=== PATIENT | female | born 1965 | race Caucasian/White ===

== ENCOUNTER 2016-11-30 17:14 | Emergency (ER) | payer BC ==
[2016-11-30] MEDS ORDERED: KETOROLAC TROMETHAMINE 30 MG/ML VIAL ONE (17:27)
[2016-11-30] MEDS ORDERED: DIPHENHYDRAMINE 50 MG/ML VIAL ONE (17:28)
[2016-11-30] MEDS ORDERED: NORMAL SALINE 250 ML IV ONE (17:30)
--- NOTE | 2016-11-30 18:18 | ER PHYSICIAN DOCUMENTATION ---
Physician Documentation [facility] Name:Katy Turner Age:50 yrs Sex:Female :1965 Arrival Date:11/30/2016 Time:17:14 Bed4 Private MD:Palmira Germain EDmeganCollins Disposition: 11/30/16 18:07 Discharged to Home/Self Care. Impression: Acute Headache. - Condition is Good. - Discharge Instructions: HEADACHE, Unspecified. - Prescriptions for Imitrex 25 mg Oral Tablet - take 1 tablet by ORAL route one time - x 1 dose with fluids as early as possible after the onset of a migraine attack; if headache returns, the dose may be repeated after 2 hours, not to exceed a total daily dose of 8 tablets;. - Medical Reconciliation form form. - Follow up: Palmira Germain MD; When: As needed; Reason: If symptoms return. - Problem is new. - Symptoms are resolved. HPI: 11/30 17:57 This 50 yrs old Female presents to ER via Private Vehicle with complaints of sc Headache. 17:57 The patient complains of pain to the top of head, forehead and left sabianism. The patient sc describes the headache as aching, throbbing. Onset: The symptoms/episode began/occurred 3 day(s) ago. Associated signs and symptoms: Pertinent positives: nausea. Severity of symptoms: At its worst the pain was moderate, earlier today. Headache History: The patient has had previous headaches and this one is more severe than previous episodes. Risk factors for subarachnoid hemhorrage: no risk factors present. The patient has experienced similar episodes in the past, a few times. The patient has been recently seen by a physician: the patient's primary care provider, earlier today. headaches 2-3x month since last summer associated with stress and insomnia. Historical: - Allergies: No known Allergies; - Home Meds: 1. Ibuprofen Oral 2. acetaminophen 650 mg oral tab 3. Mucinex oral 4. Ambien Oral - PMHx: left radial head fx, unrepaired; - PSHx: Cholecysectomy; thumb joint replaced; - Tetanus: < 10 years. - Ebola Screening: : Patient negative for fever greater than or equal to 101.5 degrees Fahrenheit, and additional compatible Ebola Virus Disease symptoms. Patient denies exposure to infectious person. Patient denies travel to an Ebola-affected area in the 21 days before illness onset. No symptoms or risks identified at this time. . - Immunization history: Pneumococcal vaccine is up to date, Flu Vaccine < 1 year. - Social history: Smoking status: Patient states was never smoker of tobacco. Patient uses alcohol Patient/guardian denies using marijuana. ROS: 17:58 Constitutional: Negative for fever, chills, and weight loss. sc Eyes: Negative for injury, pain, redness, and discharge. ENT: Negative for injury, pain, and discharge. Neck: Negative for injury, pain, and swelling. Cardiovascular: Negative for chest pain, palpitations, and edema. Respiratory: Negative for shortness of breath, cough, wheezing, and pleuritic chest pain. Abdomen/GI: Negative for abdominal pain, nausea, vomiting, diarrhea, and constipation. Back: Negative for injury and pain. MS/Extremity: Negative for injury and deformity. 17:58 Skin: Negative for injury, rash, and discoloration. sc 17:58 Neuro: Positive for headache. Exam: Constitutional: This is a well developed, well nourished patient who is awake, alert, and in no acute distress. Head/Face: Normocephalic, atraumatic. Eyes: Pupils equal round and reactive to light, extra-ocular motions intact. Lids and lashes normal. Conjunctiva and sclera are non-icteric and not injected. Cornea within normal limits. Periorbital areas with no swelling, redness, or edema. ENT: Nares patent. No nasal discharge, no septal abnormalities noted. Tympanic membranes are normal and external auditory canals are clear. Oropharynx with no redness, swelling, or masses, exudates, or evidence of obstruction, uvula midline. Mucous membranes moist. Neck: Trachea midline, no thyromegaly or masses palpated, and no cervical lymphadenopathy. Supple, full range of motion without nuchal rigidity, or vertebral point tenderness. No meningismus. Cardiovascular: Regular rate and rhythm with a normal S1 and S2. No gallops, murmurs, or rubs. Normal PMI, no JVD. No pulse deficits. Respiratory: Lungs have equal breath sounds bilaterally, clear to auscultation and percussion. No rales, rhonchi or wheezes noted. No increased work of breathing, no retractions or nasal flaring. Back: No spinal tenderness. No costovertebral tenderness. Full range of motion. Skin: Warm, dry with normal turgor. Normal color with no rashes, no lesions, and no evidence of cellulitis. MS/ Extremity: Pulses equal, no cyanosis. Neurovascular intact. Full, normal range of motion, negative Homans's, calves equal bilaterally. 17:58 Neuro: Awake and alert, GCS 15, oriented to person, place, time, and situation. fl Cranial nerves II-XII grossly intact. Motor strength 5/5 in all extremities. Sensory grossly intact. Cerebellar exam normal. Normal gait. 18:09 Neuro: Orientation: is normal, Gait: is steady. fl Vital Signs: 17:20 BP 168 / 92; Pulse 60; Resp 14; Temp 97.6(O); Pulse Ox 95% on R/A; Weight 90.26 kg; sj Height 5 ft. 4 in. (162.56 cm); Pain 8/10; 17:30 BP 156 / 90; Pulse 74; Pulse Ox 95% on R/A; sj 17:45 BP 155 / 90; Pulse 74; Pulse Ox 95% ; Pain 6/10; sj 18:09 BP 159 / 92; Pulse 73; Pulse Ox 94% ; Pain 0/10; sj 17:20 Body Mass Index 34.16 (90.26 kg, 162.56 cm) Vest Coma Score: 17:59 Eye Response: spontaneous(4). Verbal Response: oriented(5). Motor Response: obeys fl commands(6). Total: 15. MDM: 17:22 Patient medically screened. sc 17:59 Differential diagnosis: migraine, tension headache. Neurological re-evaluation: normal fl neurological exam including cranial nerves, orientation, mentation, motor and sensory exam, cerebellar testing, GCS normal, and normal gait. Data reviewed: vital signs, nurses notes, old medical records, and as a result, I will continue to observe the patient, administer IV fluids. Dispensed Medications: 17:25 Drug: Toradol 30 mg; Route: IVP; Site: left forearm; sj 17:45 Follow up: BP 155 / 90; Pulse 74 bpm; Pulse Ox 95% ; Pain 6/10 Adult; Response: Pain is sj decreased 17:26 Drug: NS 0.9% 1000 ml; Route: IV; Rate: bolus; Site: left forearm; Delivery: [place] tg Tubing; 18:08 Follow up: IV Status: Completed infusion; IV Intake: 1000ml sj 17:27 Drug: Benadryl 25 mg; Route: IVP; Site: left forearm; sj 17:46 Follow up: Response: No adverse reaction sj 17:29 Drug: Compazine 10 mg; Route: IVPB; Site: left forearm; sj 17:47 Follow up: Response: Nausea is decreased sj 18:09 Follow up: IV Status: Completed infusion; IV Intake: 250ml Signatures: Lobo Barbour RN RN tg Chew, Scott, MD MD sc Janzen, Sarah
--- NOTE | 2016-11-30 18:18 | ER NURSING DOCUMENTATION ---
Nurse's Notes [facility] Name:Katy Turner Age:50 yrs Sex:Female :1965 Arrival Date:11/30/2016 Time:17:14 Bed4 Private MD:Palmira Germain Diagnosis:Acute Headache Presentation: 11/30 17:18 Acuity: ANGEL LUIS 3 sj 17:18 Presenting complaint: Patient states: headache since Wednesday. Seen by Dr. Germain who sj accompanied pt to ED. Photophobic. Notified ED Physician of patient's arrival and CC Dr. Gutiérrez notified. 17:27 Transition of care: [facility]. tg 17:27 Method Of Arrival: Private Vehicle tg Triage Assessment: 17:35 Headache History: The patient has had previous headaches and this one is more severe sj than previous episodes. General: Appears uncomfortable, wearing sunglasses. Behavior is cooperative, pleasant. Pain: Complains of pain in forehead, left frontal area Pain currently is 8 out of 10 on a pain scale. Pain began 2-3 days ago Also complains of nausea, photophobia. Neuro: Level of Consciousness is awake, alert, Oriented to person, place, time, event, [employer] are equal bilaterally Moves all extremities. Gait is steady, Speech is normal, Facial symmetry appears normal, Pupils are PERRLA, intact. Respiratory: Respiratory effort is even, unlabored. Historical: - Allergies: No known Allergies; - Home Meds: 1. Ibuprofen Oral 2. acetaminophen 650 mg oral tab 3. Mucinex oral 4. Ambien Oral - PMHx: left radial head fx, unrepaired; - PSHx: Cholecysectomy; thumb joint replaced; - Tetanus: < 10 years. - Ebola Screening: : Patient negative for fever greater than or equal to 101.5 degrees Fahrenheit, and additional compatible Ebola Virus Disease symptoms. Patient denies exposure to infectious person. Patient denies travel to an Ebola-affected area in the 21 days before illness onset. No symptoms or risks identified at this time. . - Immunization history: Pneumococcal vaccine is up to date, Flu Vaccine < 1 year. - Social history: Smoking status: Patient states was never smoker of tobacco. Patient uses alcohol Patient/guardian denies using marijuana. Screenin:27 Infectious Disease Risk Unable to Obtain. Abuse screen: Denies threats or abuse. Denies tg injuries from another. Nutritional screening: No deficits noted. Assessment: 17:39 Pain: Complains of pain in left forehead. sj Vital Signs: 17:20 BP 168 / 92; Pulse 60; Resp 14; Temp 97.6(O); Pulse Ox 95% on R/A; Weight 90.26 kg; sj Height 5 ft. 4 in. (162.56 cm); Pain 8/10; 17:30 BP 156 / 90; Pulse 74; Pulse Ox 95% on R/A; sj 17:45 BP 155 / 90; Pulse 74; Pulse Ox 95% ; Pain 6/10; sj 18:09 BP 159 / 92; Pulse 73; Pulse Ox 94% ; Pain 0/10; sj 17:20 Body Mass Index 34.16 (90.26 kg, 162.56 cm) sj [place] Coma Score: 17:59 Eye Response: spontaneous(4). Verbal Response: oriented(5). Motor Response: obeys sc commands(6). Total: 15. ED Course: 17:16 Patient arrived in ED. ds 17:16 Palmira Germain MD is Private Physician. ds 17:18 Aydee Stock is Primary Nurse. sj 17:18 Triage completed. sj 17:22 Collins Guitérrez MD is Attending Physician. sc 17:26 Inserted peripheral IV: 20 gauge in left forearm. tg 17:27 Valuables Remains with patient. Pulse Ox - RN Monitoring Only. Verbal reassurance tg given. Warm blanket given. Pillow given. 18:06 Palmira Germain MD is Referral Physician. sc Administered Medications: 17:25 Drug: Toradol 30 mg; Route: IVP; Site: left forearm; sj 17:45 Follow up: BP 155 / 90; Pulse 74 bpm; Pulse Ox 95% ; Pain 6/10 Adult; Response: Pain is sj decreased 17:26 Drug: NS 0.9% 1000 ml; Route: IV; Rate: bolus; Site: left forearm; Delivery: [place] tg Tubing; 18:08 Follow up: IV Status: Completed infusion; IV Intake: 1000ml sj 17:27 Drug: Benadryl 25 mg; Route: IVP; Site: left forearm; sj 17:46 Follow up: Response: No adverse reaction sj 17:29 Drug: Compazine 10 mg; Route: IVPB; Site: left forearm; sj 17:47 Follow up: Response: Nausea is decreased sj 18:09 Follow up: IV Status: Completed infusion; IV Intake: 250ml sj Intake: 18:08 IV: 1000ml; Total: 1000ml. sj 18:09 IV: 250ml; Total: 1250ml. Outcome: 18:07 Discharge ordered by . wy 18:17 Discharged to home ambulatory, with family. 18:17 Condition: improved 18:17 Instructed on discharge instructions, follow up and referral plans. medication usage, Demonstrated understanding of instructions, medications, Prescriptions given X 1. 18:17 Patient left the ED. 12/01 13:54 Discharge F/U Call: Spoke with: spouse with permission of patient. Overall Care on a ma scale of 1-10 with 10 being the best care, you rate our care as: Other comments: Spoke with States pt is feeling much better and is out running errands States we took great care of her Signatures: Lobo Barbour RN RN tg Abuso, Melanie, RN RN ma Srot, Subha, Reg Reg Collins Kingston MD MD sc Janzen, Aydee
== END 2016-11-30 18:17 | disposition home or self-care (01) ==
LOC: ER 17:14
DX: R51 Headache (principal); R11.0 Nausea; Z79.899 Other long term (current) drug therapy
CPT/HCPCS: 96365; 96375; 99283; J1200; J1885; J7050